=== PATIENT | female | born 1995 | race Caucasian/White ===

== ENCOUNTER 2017-04-07 12:31 | Emergency (ER) | payer OTHER ==
[2017-04-07 12:52] VITALS: BP 133/75
--- NOTE | 2017-04-07 12:59 | UC ---
Throat Pain/Nasal Joe HPI - HPI Summary HPI Summary: Patient has increased sinus and nasal congestion, fever and coughing up phlegmx 7 days - History of Current Complaint Chief Complaint: UCGeneralIllness Stated Complaint: SINUSES Time Seen by Provider: 04/07/17 12:47 Hx Obtained From: Patient Hx Last Menstrual Period: "two weeks ago" ?: No Onset/Duration: Sudden Onset, Lasting Weeks Severity: Moderate Cough: Nonproductive Associated Signs & Symptoms: Positive: Dysphagia, Wheezing, Hoarseness, Sinus Discomfort, Nasal Discharge, Fever - Allergies/Home Medications Allergies/Adverse Reactions: Allergies Allergy/AdvReac Type Severity Reaction Status Date / Time Penicillins Allergy Unknown Unknown Verified 04/07/17 12:46 Reaction Details Amoxicillin Allergy Unknown Verified 04/07/17 12:46 Reaction Details Home Medications: Home Medications Norgestimate-Ethinyl Estradiol [[place]] 1 tab PO DAILY 04/07/17 [History Confirmed 04/07/17] Pseudoephedrine-Guaifenesin [Mucinex D] 1 tab PO Q12H PRN 04/07/17 [History Confirmed 04/07/17] PMH/Surg Hx/FS Hx/Imm Hx Previously Healthy: Yes - Surgical History Surgical History: None - Family History Known Family History: Negative: Cardiac Disease, Hypertension - Social History Alcohol Use: None Substance Use Type: None Smoking Status (MU): Never Smoked Tobacco - Immunization History Most Recent Influenza Vaccination: Not the Season Vaccination Up to Date: Yes Review of Systems Constitutional: Fever, Fatigue Skin: Negative ENT: Sore Throat, Ear Ache, Nasal Discharge, Sinus Congestion, Sinus Pain/ Tenderness Respiratory: Cough Cardiovascular: Negative Gastrointestinal: Negative Motor: Negative Neurovascular: Negative Musculoskeletal: Negative Neurological: Headache Psychological: Negative Is Patient Immunocompromised?: No All Other Systems Reviewed And Are Negative: Yes Physical Exam Triage Information Reviewed: Yes Appearance: Well-Nourished, Ill-Appearing, Pain Distress Vital Signs: Initial Vital Signs Temp 100.5 F 04/07/17 12:44 Pulse 144 04/07/17 12:44 Resp 16 04/07/17 12:44 BP 133/75 04/07/17 12:44 Pulse Ox 100 04/07/17 12:44 Vital Signs Reviewed: Yes Eye Exam: Normal ENT: Positive: Pharyngeal erythema, Tonsillar swelling, Tonsillar exudate, Sinus tenderness, Other - nasal turbids inflammed Neck exam: Normal Neck: Positive: Supple, Nontender, No Lymphadenopathy Respiratory Exam: Normal Respiratory: Positive: Lungs clear, Normal breath sounds Cardiovascular Exam: Normal Cardiovascular: Positive: No Murmur, Pulses Normal, Tachycardia Abdominal Exam: Normal Abdomen Description: Positive: Nontender, No Organomegaly, Soft Bowel Sounds: Positive: Present Musculoskeletal Exam: Normal Musculoskeletal: Positive: Strength Intact, ROM Intact, No Edema Neurological Exam: Normal Neurological: Positive: Alert, Muscle Tone Normal Psychological Exam: Normal Skin Exam: Normal Throat Pain/Nasal Course/Dx - Course Course Of Treatment: hx obtained, exam performed ,meds reviewed, treated for sinusitis - Differential Dx/Diagnosis Differential Diagnosis/HQI/PQRI: Otitis Media, Pharyngitis, Sinusitis Provider Diagnoses: sinusitis Discharge - Discharge Plan Condition: Stable Disposition: HOME Prescriptions: DOXYcycline CAP(*) [DOXYcycline 100MG CAP(*)] 100 mg PO BID #14 cap Patient Education Materials: Sinusitis (ED) Referrals: NATY Connors [Primary Care Provider] - Additional Instructions: 1. take the medication as prescribed. 2. wram compresses to the sinus area 3. Ibuprofen for pain and fever 4. I recommend a probiotic (acidophillus) over the counter, you can take it with each meal while on the antibiotic
== END 2017-04-07 13:06 | disposition home or self-care (01) ==
LOC: UCCORT 12:31
DX: J32.9 Chronic sinusitis, unspecified (principal); R05 Cough; Z88.0 Allergy status to penicillin
CPT/HCPCS: 99202; G0463

== ENCOUNTER 2017-04-10 15:24 | Emergency (ER) | payer OTHER ==
--- NOTE | 2017-04-10 15:55 | UC ---
Skin Complaint HPI - HPI Summary HPI Summary: 21 y/o female presents to the urgent care c/o rash on bilateral hands and right foot beginning yesterday and worsening today. Patient seen 04/07/17 here at the clinic and Dx with acute sinusitis and Rx Doxycycline PO. She started to take the ABX and yesterday she noticed a rash in both hands and this morning she noticed it on her RT foot. She states mild itchiness. She still W/ nasal congestion and green discharge, +PND, PARRY. Pt denies, fever, throat tighenss, SOB, chest pain, abdominal pain, N/V/D - History of Current Complaint Time Seen by Provider: 04/10/17 15:44 Stated Complaint: RASH Hx Obtained From: Patient Hx Last Menstrual Period: "two weeks ago" ?: No Onset/Duration: Gradual Onset, Lasting Weeks - 1 week, Still Present, Worse Since - yesterday Skin Exposure Onset/Duration: Days Ago - 3 days Timing: Constant Onset Severity: Mild Current Severity: Mild Pain Intensity: 0 Pain Scale Used: 0-10 Numeric Location: Discrete, Hand (Right) - Both, Foot (Right) Character: Pruritus, Redness Aggravating Factor(s): Touch Alleviating Factor(s): Nothing Associated Signs & Symptoms: Positive: Rash. Negative: Nausea, Difficulty Breathing, Fever, Chills, Wheezing, Hoarseness, Throat Tightening Related History: Recent change in medication - Allergy/Home Medications Allergies/Adverse Reactions: Allergies Allergy/AdvReac Type Severity Reaction Status Date / Time Penicillins Allergy Unknown Unknown Verified 04/10/17 15:58 Reaction Details Amoxicillin Allergy Unknown Verified 04/10/17 15:58 Reaction Details Review of Systems Constitutional: Negative Skin: Rash - in both hands and RT foot Eyes: Negative ENT: Nasal Discharge, Sinus Congestion, Sinus Pain/Tenderness Respiratory: Negative Cardiovascular: Negative Gastrointestinal: Negative Genitourinary: Negative Motor: Negative Neurovascular: Negative Musculoskeletal: Negative Neurological: Headache Psychological: Negative Is Patient Immunocompromised?: No All Other Systems Reviewed And Are Negative: Yes PMH/Surg Hx/FS Hx/Imm Hx Previously Healthy: Yes Respiratory History: Asthma - Surgical History Surgical History: None - Family History Known Family History: Positive: Hypertension, Diabetes, Respiratory Disease - Asthma - Social History Occupation: Student Lives: With Family Alcohol Use: None Substance Use Type: None Smoking Status (MU): Never Smoked Tobacco - Immunization History Most Recent Influenza Vaccination: Not the 2017/2017 Season Vaccination Up to Date: Yes Physical Exam Triage Information Reviewed: Yes - Additional Comments Vitals: reviewed General: Well developed, well-nourished female adoelscent with NAD. Head and face: Normocephalic and atraumatic, Positive tenderness over the frontal and maxillary sinuses.. Eyes: PERRLA, EOMI x 2. Normal conjunctiva. No eye discharge. ENT: Ears and TM with normal limits. Nose: with yellowish discharge and erythematous mucosa. Pharynx with erythema , no exudate. Neck: Supple, no JVD, no carotid bruits and no lymphadenopathy. Lungs: clear, no rales, no rhonchi, no wheezes. CVS: RRR, S1 and S2 present no murmurs or gallops appreciated. Abdomen: soft nontender with positive bowel sounds. Extremities: no edema noted. Neuro: WNL. Skin: warm and dry. B/L hands dorsal and palmar sides with erythematous papules scattered and some with look like small target lesions. Non tender to palpation, no drainage observed. RT foot medial side with similar eruption. Course/Dx - Course Course Of Treatment: 21 y/o female presents to the urgent care c/o rash on bilateral hands and right foot beginning yesterday and worsening today. Patient seen 04/07/17 here at the clinic and Dx with acute sinusitis and Rx Doxycycline PO. She started to take the ABX and yesterday she noticed a rash in both hands and this morning she noticed it on her RT foot. She states mild itchiness. She still W/ nasal congestion and green discharge, +PND, PARRY. Pt denies, fever, throat tighenss, SOB, chest pain, abdominal pain, N/V/D. Hx obtained. pt with B/L hands and RT foot with a acute eruption probably due to medication adverse reaction. Pt Advised to stope immediately Doxycycline. Pt RX Benadryl PO, and hydrocotisone topical cream to alleviate symptoms. Advised rash will resolve in 4-5 day. Also Rx Clindamycin PO ans Flucticasone for Sinusitis. The patient was instructed to return to clinic or report to the nearest emergency room if rash or any other symptoms worsen. Pt Given ENT referral if not improvement of her sinusitis. The patient understands and agrees w/ plan of care.. - Differential Diagnoses - Skin Complaint Differential Diagnoses: Allergic Reaction, Contact Dermatitis, Drug Rash, Erythema Multiforme, Local Allergic Reaction, Medication; Adverse Reaction, Urticaria - Diagnoses Provider Diagnoses: 1- Acute rash probably medication adverse reaction. 2- Acute sinusitis Discharge - Discharge Plan Condition: Stable Disposition: HOME Prescriptions: Clindamycin Cap(NF) [Clindamycin Cap 300 mg Cap(NF)] 300 mg PO Q6H #28 cap diPHENhydraMINE PO* [Benadryl PO 25 MG TAB*] 25 mg PO Q6H PRN #20 tab PRN Reason: Itching Fluticasone NASAL SPRAY 50MCG* [Flonase NASAL SPRAY 50MCG*] 2 spray BOTH NARES DAILY #1 btl Hydrocortisone 1% CREAM* [Hytone Cream 1%*] 1 applic TOPICAL TID #1 tube Patient Education Materials: Sinusitis (ED), Acute Rash (ED) Referrals: NATY Connors [Primary Care Provider] - 3 Days Ravinder Almendarez MD [Medical Doctor] - 3 Days Additional Instructions: 1- Stop taking the Doxycycline PO. Increase fluid intake and rest. take full course of Chlidamycin antibiotic to avoid resistance 2-Use Flonase as directed to help drain fluid. Also buy saline drops to clear sinuses 3-Take Claritin PO to alleviates sinus congestion 4- apply topical cream over both hands and take Benadryl PO as directed to alleviate itchiness 4-Return to the clinic or PCP if symptoms do not improve for further management and treatment
[2017-04-10 15:59] VITALS: BP 120/67
== END 2017-04-10 16:31 | disposition home or self-care (01) ==
LOC: UCCORT 15:24
DX: R21 Rash and other nonspecific skin eruption (principal); J01.90 Acute sinusitis, unspecified; J45.909 Unspecified asthma, uncomplicated; Z88.0 Allergy status to penicillin
CPT/HCPCS: 99212; G0463

== ENCOUNTER 2017-05-20 14:15 | Emergency (ER) | payer OTHER ==
[2017-05-20 15:58] VITALS: BP 130/71
--- NOTE | 2017-05-20 16:36 | UC ---
Throat Pain/Nasal Joe HPI - HPI Summary HPI Summary: worsening sinus pain and congestion--had a fx nose and left nare is occluded - History of Current Complaint Hx Obtained From: Patient Hx Last Menstrual Period: 2 weeks ago ?: No Onset/Duration: Sudden Onset, Lasting Days - 3 Severity: Moderate Pain Intensity: 0 Cough: None Associated Signs & Symptoms: Positive: Sinus Discomfort, Nasal Discharge, Other - fatigue <Nunu Quintero - Last Filed: 05/20/17 16:31> <Marjorie Juarez - Last Filed: 05/20/17 17:56> - History of Current Complaint Chief Complaint: UCRespiratory Stated Complaint: SINUS PRESSURE Time Seen by Provider: 05/20/17 16:02 - Allergies/Home Medications Allergies/Adverse Reactions: Allergies Allergy/AdvReac Type Severity Reaction Status Date / Time amoxicillin Allergy See Comment Verified 05/20/17 15:50 doxycycline Allergy Rash Verified 05/20/17 15:50 Penicillins Allergy See Comment Verified 05/20/17 15:50 PMH/Surg Hx/FS Hx/Imm Hx Previously Healthy: No - fx nose - Surgical History Surgical History: None - Family History Known Family History: Positive: Hypertension, Diabetes, Respiratory Disease - Asthma Negative: Cardiac Disease - Social History Occupation: Employed Full-time Lives: With Family Alcohol Use: None Substance Use Type: None Smoking Status (MU): Smoker, Current Status Unknown Have You Smoked in the Last Year: Yes Cessation Counseling: Patient Advised to Stop - Immunization History Most Recent Influenza Vaccination: Not the 2017/2017 Season Vaccination Up to Date: Yes <Nunu Quintero - Last Filed: 05/20/17 16:31> Review of Systems Constitutional: Fatigue Skin: Negative Eyes: Negative ENT: Negative, Nasal Discharge, Sinus Congestion, Sinus Pain/Tenderness Respiratory: Negative Cardiovascular: Negative Gastrointestinal: Negative Genitourinary: Negative Motor: Negative Neurovascular: Negative Musculoskeletal: Negative Neurological: Headache Psychological: Negative Is Patient Immunocompromised?: No All Other Systems Reviewed And Are Negative: Yes <Nunu Quintero - Last Filed: 05/20/17 16:31> Physical Exam Triage Information Reviewed: Yes Appearance: Well-Appearing, No Pain Distress, Well-Nourished Vital Signs: Initial Vital Signs Temp 98.9 F 05/20/17 15:50 Pulse 91 05/20/17 15:50 Resp 16 05/20/17 15:50 BP 130/71 05/20/17 15:50 Pulse Ox 98 05/20/17 15:50 Vital Signs Reviewed: Yes Eye Exam: Normal Eyes: Positive: Conjunctiva Clear ENT Exam: Normal ENT: Positive: Normal ENT inspection, Hearing grossly normal, Nasal congestion, Nasal drainage, Sinus tenderness. Negative: TMs normal, Tonsillar swelling, Tonsillar exudate, Trismus, Muffled voice, Dental tenderness Dental Exam: Normal Neck exam: Normal Neck: Positive: Supple, Nontender Respiratory Exam: Normal Respiratory: Positive: Chest non-tender, Lungs clear, Normal breath sounds, No respiratory distress, No accessory muscle use Cardiovascular Exam: Normal Cardiovascular: Positive: RRR, No Murmur, Pulses Normal, Brisk Capillary Refill Musculoskeletal Exam: Normal Musculoskeletal: Positive: Strength Intact, ROM Intact, No Edema Neurological Exam: Normal Neurological: Positive: Alert Psychological Exam: Normal Skin Exam: Normal <Nunu Quintero - Last Filed: 05/20/17 16:31> Vital Signs: Initial Vital Signs Temp 98.9 F 05/20/17 15:50 Pulse 91 05/20/17 15:50 Resp 16 05/20/17 15:50 BP 130/71 05/20/17 15:50 Pulse Ox 98 05/20/17 15:50 <Marjorie Juarez - Last Filed: 05/20/17 17:56> Throat Pain/Nasal Course/Dx - Course Assessment/Plan: mucinex D, zithromax, flonase increase fluids, follow pcp - Differential Dx/Diagnosis Provider Diagnoses: sinusitis, deviated septum <Nunu Quintero - Last Filed: 05/20/17 16:31> Discharge <Nunu Quintero - Last Filed: 05/20/17 16:31> <Marjorie Juarez - Last Filed: 05/20/17 17:56> - Discharge Plan Condition: Stable Disposition: HOME Prescriptions: Azithromycin 100 MG/5 ML SUSP* [Zithromax SUSP* 100 MG/5 ML] 500 mg PO DAILY # 75 ml Fluticasone NASAL SPRAY 50MCG* [Flonase NASAL SPRAY 50MCG*] 2 spray BOTH NARES DAILY #1 btl Guaifen/Phenyleph/Acetaminophn [Mucinex Sinus-Max Severe Liq] 180 ml PO SEE INSTRUCTIONS #20 ml Patient Education Materials: Sinusitis (ED) Forms: *Work Release Referrals: NATY Connors [Primary Care Provider] - If Needed Attestation Statement User Type: Provider - I was available for consult. This patient was seen by the [facility]. The patient was not presented to, seen by, or examined by me. Bethanie <Marjorie Juarez - Last Filed: 05/20/17 17:56>
== END 2017-05-20 16:36 | disposition home or self-care (01) ==
LOC: UCCORT 14:15
DX: J32.9 Chronic sinusitis, unspecified (principal); J34.2 Deviated nasal septum; Z88.0 Allergy status to penicillin; Z88.8 Allergy status to other drugs, medicaments and biological substances; F17.210 Nicotine dependence, cigarettes, uncomplicated
CPT/HCPCS: 99212; G0463